=== PATIENT | female | born 1940 | race Caucasian/White ===

== ENCOUNTER → 2020-05-22 | Outpatient (CLI) | payer MEDICARE, OTHER | LOC: KOH-I 12:16 | DX: M25.511 Pain in right shoulder (principal) | CPT/HCPCS: 73030 ==

== ENCOUNTER → 2020-07-24 | Outpatient (CLI) | payer MEDICARE, OTHER | LOC: NM 07-02 09:00 | DX: R07.9 Chest pain, unspecified (principal) | CPT/HCPCS: 78452; A9502 ==

== ENCOUNTER 2020-12-09 00:55 | Emergency (ER) | payer MEDICARE, OTHER ==
[2020-12-09 03:00] LABS: HEMOGLOBIN 11.2 gm/dl (12.3-15.3); RED BLOOD COUNT 3.84 M/UL (4.00-5.10); WHITE BLOOD COUNT 12.5 K/UL (4.5-11.0)
== END 2020-12-09 05:39 | disposition home or self-care (01) ==
LOC: ER1 00:55
PROVIDERS: Emergency Medicine
DX: R04.0 Epistaxis (principal); I10 Essential (primary) hypertension
CPT/HCPCS: 70450; 80053; 81001; 85025; 85610; 85730; 99284

== ENCOUNTER → 2020-12-26 | Outpatient (CLI) | payer MEDICARE, OTHER ==
[~2020-12-26] MED LIST: HYDROCODON-ACE1 EAC4 PO
== END ==
LOC: EXRD 11-28 11:30 → KOH-I 12-10 15:00 → US 13:23
DX: I80.3 Phlebitis and thrombophlebitis of lower extremities, unspecified (principal); R60.0 Localized edema; I72.4 Aneurysm of artery of lower extremity; I70.203 Unspecified atherosclerosis of native arteries of extremities, bilateral legs
CPT/HCPCS: 93971

== ENCOUNTER 2021-01-08 22:38 | Emergency (ER) | payer MEDICARE, OTHER ==
[2021-01-08 23:17] LABS: HEMOGLOBIN 11.1 gm/dl (12.3-15.3); RED BLOOD COUNT 3.78 M/UL (4.00-5.10); WHITE BLOOD COUNT 10.7 K/UL (4.5-11.0)
[2021-01-09] MEDS ORDERED: HYDROCODON-ACE1 EAC4 PO (02:33)
== END 2021-01-09 02:40 | disposition home or self-care (01) ==
LOC: ER1 22:38
PROVIDERS: Emergency Medicine
DX: R10.31 Right lower quadrant pain (principal); I10 Essential (primary) hypertension; E78.5 Hyperlipidemia, unspecified; E03.9 Hypothyroidism, unspecified; Z88.1 Allergy status to other antibiotic agents
CPT/HCPCS: 80053; 81001; 83690; 85025; 87086; 99284; Q9967

== ENCOUNTER → 2021-01-15 | Outpatient (CLI) | payer MEDICARE, OTHER | LOC: US 09:01 | DX: R10.84 Generalized abdominal pain (principal); K80.20 Calculus of gallbladder without cholecystitis without obstruction; N28.89 Other specified disorders of kidney and ureter | CPT/HCPCS: 76700 ==

== ENCOUNTER 2021-04-17 14:03 | Emergency (ER) | payer MEDICARE, OTHER ==
[2021-04-17 15:36] LABS: HEMOGLOBIN 11.6 gm/dl (12.3-15.3); RED BLOOD COUNT 3.94 M/UL (4.00-5.10); WHITE BLOOD COUNT 7.8 K/UL (4.5-11.0)
[2021-04-17 16:05] LABS: BUN/CREATININE RATIO 17 (0-10)
[2021-04-17] MEDS ORDERED: BENZONATATE100 MG PO (17:10)
== END 2021-04-17 17:35 | disposition home or self-care (01) ==
LOC: ER1 14:03
PROVIDERS: Emergency Medicine
DX: U07.1 COVID-19 (principal); I10 Essential (primary) hypertension
CPT/HCPCS: 0240U; 71045; 80053; 81001; 82550; 82553; 83874; 84484; 85025; 99283

== ENCOUNTER 2021-04-23 10:06 | Emergency (ER) | payer MEDICARE, OTHER ==
[~2021-04-23] VITALS: Ht 170.2 cm; Wt 81.6 kg
[~2021-04-23 10:06] MED LIST changes: +BENZONATATE100 MG PO
[2021-04-23 11:33] LABS: HEMOGLOBIN 11.4 gm/dl (12.3-15.3); RED BLOOD COUNT 3.93 M/UL (4.00-5.10); WHITE BLOOD COUNT 6.5 K/UL (4.5-11.0)
[2021-04-23 12:23] LABS: BUN/CREATININE RATIO 16 (0-10)
== END 2021-04-23 16:00 | disposition home or self-care (01) ==
LOC: ER1 10:06
PROVIDERS: Emergency Medicine
DX: U07.1 COVID-19 (principal); D64.9 Anemia, unspecified; E87.1 Hypo-osmolality and hyponatremia; I10 Essential (primary) hypertension; E07.9 Disorder of thyroid, unspecified; Z23 Encounter for immunization
CPT/HCPCS: 71045; 80053; 82550; 82553; 83874; 84484; 85025; 99284; M0245

== ENCOUNTER 2021-04-28 12:02 | Inpatient (IN) | payer MEDICARE, OTHER ==
[~2021-04-28] VITALS: Ht 170.2 cm; Wt 90.8 kg
[2021-04-28 15:01] LABS: HEMOGLOBIN 10.1 gm/dl (12.3-15.3); RED BLOOD COUNT 3.64 M/UL (4.00-5.10); WHITE BLOOD COUNT 12.1 K/UL (4.5-11.0)
[2021-04-28 15:41] LABS: BUN/CREATININE RATIO 17 (0-10)
[2021-04-29] MEDS ORDERED: LOTREL 5-20 MG1 EACH PO (02:09)
[2021-04-29] MEDS ORDERED: LEVOTHYROXINE100 MC2 PO (02:09)
[2021-04-29] MEDS ORDERED: TOPROL XL50 MG PO (02:10)
[2021-04-29] MEDS ORDERED: LIPITOR10 MG PO (02:10)
[2021-04-29 05:23] LABS: BUN/CREATININE RATIO 12 (0-10)
[2021-04-29 05:24] LABS: RED BLOOD COUNT 3.5 M/UL (4.00-5.10); WHITE BLOOD COUNT 9.6 K/UL (4.5-11.0)
[2021-04-29] MEDS ORDERED: DECADRON6 MG PO (10:32)
[2021-04-29] MEDS ORDERED: FERROUS SULFAT325 M2 PO (10:43)
== END 2021-04-29 12:00 | disposition home health service (06) | DRG 177 ==
LOC: ER1 12:02 → CCU 20:34 → CDU 20:34 → CCU 04-29 01:55
PROVIDERS: Physician Assistant; ADMIT Internal Medicine
PROC: 8E0ZXY6 Isolation (ICD-10-PCS; principal; 2021-04-28)
PROC: 3E0333Z Introduction of Anti-inflammatory into Peripheral Vein, Percutaneous Approach (ICD-10-PCS; 2021-04-28)
DX: U07.1 COVID-19 (principal); J12.82 Pneumonia due to coronavirus disease 2019; J96.21 Acute and chronic respiratory failure with hypoxia; E87.1 Hypo-osmolality and hyponatremia; I10 Essential (primary) hypertension; E07.9 Disorder of thyroid, unspecified; Z88.8 Allergy status to other drugs, medicaments and biological substances; Z82.49 Family history of ischemic heart disease and other diseases of the circulatory system; Z88.6 Allergy status to analgesic agent; Z99.81 Dependence on supplemental oxygen
CPT/HCPCS: 36415; 71045; 80048; 80053; 81001; 82550; 82553; 82607; 82728; 82746; 83540; 83550; 83605; 83735; 83874; 83880; 84439; 84443; 84484; 85025; 85379; 86140; 93005; 94664; 99285; J1100; J1956; Q9967; U0002